=== PATIENT | male | born 2000 | race Caucasian/White ===

== ENCOUNTER 2024-06-20 10:11 | Emergency (ER) | payer BC ==
[~2024-06-20] VITALS: Ht 188 cm; Wt 86.2 kg
[2024-06-20 10:19] VITALS: BP 137/70; TEMP 98.8; O2SAT 100
[2024-06-20] MEDS ORDERED: NAPR-1164 PO (10:26)
[2024-06-20] MEDS ORDERED: KETOROLAC TROMETHAMINE 15 MG/ML VIAL ONE (10:29)
[2024-06-20] MEDS: KETOROLAC TROMETHAMINE 15 MG/ML VIAL IM ONE (10:30)
== END 2024-06-20 10:36 | disposition home or self-care (01) ==
LOC: ER 10:11
DX: S13.4XXA Sprain of ligaments of cervical spine, initial encounter (principal); Z79.899 Other long term (current) drug therapy; Z60.2 Problems related to living alone; V89.2XXA Person injured in unspecified motor-vehicle accident, traffic, initial encounter; Y93.89 Activity, other specified; Y92.89 Other specified places as the place of occurrence of the external cause; Y99.8 Other external cause status
CPT/HCPCS: 99283; 96372; J1885